=== PATIENT | female | born 1940 | race Caucasian/White ===

== ENCOUNTER → 2016-07-24 | Outpatient (CLI) | payer MEDICARE, BC ==
--- NOTE | 2016-07-24 09:34 | KCIC ---
PROCEDURE Complete abdominal ultrasound. HISTORY Hepatic hemangioma. TECHNIQUE Real-time ultrasound imaging of the abdomen is performed. COMPARISON None available. FINDINGS The liver measures 15.4 cm in length and is normal in echotexture. There is a right hepatic lobe hemangioma that is hyperechoic and measures 3.4 x 4.2 x 3.6 cm. Portal flow is hepatopetal. Although images are not available, the ultrasound report from 2009 describes the hemangioma as measuring up to 4.9 cm. The pancreas is homogeneous in appearance and no focal enlargement is seen. The gallbladder appears normal and no gallstones or gallbladder wall thickening is seen. No pericholecystic fluid is seen. No positive Steven's sign was elicited during transducer examination of the gallbladder. No extrahepatic biliary ductal dilatation is seen and the extrahepatic bile duct measures 4 mm. The right kidney measures 10.2 cm in length and no hydronephrosis or renal mass or perinephric fluid collection is seen. The left kidney measures 10.2 cm in length and no hydronephrosis is seen. There is a cyst measuring up to 1.6 cm. There is a 3 millimeter probable renal calculus. The spleen measures 8.9 cm in length and is homogeneous in appearance. No focal aneurysmal dilatation of the abdominal aorta is seen. The IVC is unremarkable. No ascites is seen. IMPRESSION 1. Right hepatic lobe hemangioma. 2. Small left renal cyst. Left renal calculus. Electronically signed by: Vishnu Parekh MD (July 24, 2016 09:32:38)
== END | disposition home or self-care (01) ==
LOC: KCIC US 07:51
PROVIDERS: ATTEND Internal Medicine Gastroenterology
DX: D18.09 Hemangioma of other sites (principal)
CPT/HCPCS: 76700